=== PATIENT | male | born 1990 | race Caucasian/White ===

== ENCOUNTER 2018-11-24 17:33 | Emergency (ER) | payer OTHER ==
[~2018-11-24] VITALS: Ht 165.1 cm; Wt 77.1 kg
[2018-11-24 17:50] VITALS: Ht 165.1 cm; Wt 77.1 kg
[2018-11-24 18:02] VITALS: BP 150/78
== END 2018-11-24 18:02 | disposition other institution (70) ==
LOC: ED 17:33
DX: Z02.89 Encounter for other administrative examinations (principal)